=== PATIENT | male | born 1985 ===

== ENCOUNTER 2018-09-22 03:23 | Emergency (ER) | payer OTHER ==
[2018-09-22 03:47] VITALS: BP 140/73; PULSE 87; RESP 17; TEMP 98.9; O2SAT 98
--- NOTE | 2018-09-22 06:38 | ED PDOC ---
HPI: Psych/Substance Abuse Time Seen by Provider: 09/22/18 03:53 Chief Complaint (Nursing): Psychiatric Evaluation Chief Complaint (Provider): Psychiatric Evaluation History Per: Patient History/Exam Limitations: no limitations Onset/Duration Of Symptoms: Days Current Symptoms Are (Timing): Still Present Suicide/Self Injury Attempted (Context): None Modifying Factor(s): None Additional Complaint(s): 32 y/o male with a PMHx of psychiatric disorders presents to the ED for multiple complaints. Patient states he lives in a rehab facility and is nervous about being there. In addition, patient reports of having lost his psychiatric medications. At this time, patient states he has nowhere to stay. Denies suicidal and homicidal ideation. Past Medical History Reviewed: Historical Data, Nursing Documentation, Vital Signs Vital Signs: Last Vital Signs Temp 98.9 F 09/22/18 03:38 Pulse 87 09/22/18 03:38 Resp 17 09/22/18 03:38 BP 140/73 09/22/18 03:38 Pulse Ox 98 09/22/18 03:38 - Medical History PMH: No Chronic Diseases - Surgical History Surgical History: No Surg Hx - Family History Family History: States: Unknown Family Hx - Living Arrangements Living Arrangements: Other (In a rehab facility) - Allergies Allergies/Adverse Reactions: Allergies Allergy/AdvReac Type Severity Reaction Status Date / Time risperidone [From Risperdal] Allergy Mild RASH Verified 09/22/18 03:47 Review of Systems ROS Statement: Except As Marked, All Systems Reviewed And Found Negative Constitutional: Positive for: Other (Lost is psychiatric medications) Psych: Positive for: Anxiety. Negative for: Suicidal ideation Physical Exam - Reviewed Nursing Documentation Reviewed: Yes Vital Signs Reviewed: Yes - Physical Exam Appears: Positive for: No Acute Distress Head Exam: Positive for: ATRAUMATIC, NORMOCEPHALIC Skin: Positive for: Normal Color, Warm, Dry Eye Exam: Positive for: Normal appearance, EOMI, PERRL Neck: Positive for: Normal, Painless ROM Cardiovascular/Chest: Positive for: Regular Rate, Rhythm. Negative for: Murmur Respiratory: Positive for: Normal Breath Sounds. Negative for: Respiratory Distress Gastrointestinal/Abdominal: Positive for: Normal Exam, Soft. Negative for: Tenderness Back: Positive for: Normal Inspection. Negative for: L CVA Tenderness, R CVA Tenderness, Vertebral Tenderness Extremity: Positive for: Normal ROM. Negative for: Pedal Edema, Deformity Neurologic/Psych: Positive for: Alert, Oriented. Negative for: Motor/Sensory Deficits - ECG O2 Sat by Pulse Oximetry: 98 (RA) Pulse Ox Interpretation: Normal Medical Decision Making Medical Decision Making: Time: 0639 A/P: No acute intervention necessary at this time. -- Patient to be referred as an outpatient. Scribe Attestation: Documented by Darshan Baeza, acting as a scribe for Monroe Welch MD. Provider Scribe Attestation: All medical record entries made by the Scribe were at my direction and personally dictated by me. I have reviewed the chart and agree that the record accurately reflects my personal performance of the history, physical exam, medical decision making, and the department course for this patient. I have also personally directed, reviewed, and agree with the discharge instructions and disposition. Disposition - Clinical Impression Clinical Impression: Adjustment disorder - Patient ED Disposition Is Patient to be Admitted: No Counseled Patient/Family Regarding: Diagnosis, Need For Followup - Disposition [facility]] Dejah Bundy DO [Family Provider] - Disposition: Routine/Home Disposition Time: 06:39 Condition: STABLE Instructions: Adjustment Disorder Forms: [employer] (Indonesian)
== END 2018-09-22 06:49 | disposition home or self-care (01) ==
LOC: H.ER 03:23
DX: F43.20 Adjustment disorder, unspecified (principal); Z00.8 Encounter for other general examination; Z86.59 Personal history of other mental and behavioral disorders